=== PATIENT | female | born 1960 | race Caucasian/White ===

== ENCOUNTER 2019-05-17 14:42 | Emergency (ER) | payer OTHER ==
[~2019-05-17] VITALS: Ht 152.4 cm; Wt 72.6 kg
[2019-05-17] MEDS ORDERED: OMEPRAZOLE20 M2 PO (15:12)
[2019-05-17 15:27] LABS: URINE BLOOD 3+ (Negative); URINE CLARITY SL CLOUDY; URINE COLOR RED; URINE GLUCOSE-RANDOM NEGATIVE (Negative); URINE KETONES TRACE (Negative); URINE NITRITE-REFLEX NEGATIVE (Negative); URINE PROTEIN 2+ (Negative); URINE UROBILINOGEN 0.2 E.U./dl (0.2-1.0)
[2019-05-17 15:29] LABS: ICTOTEST (BILI CONFIRMATORY) Negative (Negative); URINE BILIRUBIN 2+ (Negative); URINE LEUKOCYTES-REFLEX 2+ (Negative)
[2019-05-17 15:41] LABS: CASTS None Seen /LPF (None Seen); CRYSTALS None Seen /LPF (None Seen); SQUAMOUS 0-3 Few /LPF (0-3); URINE RBC 3-10 Few /HPF (0-2); URINE WBC-REFLEX 6-15 Few /HPF (0-5)
[2019-05-17] MEDS ORDERED: PHENAZOPYRIDIN200 M2 PO (15:58)
[2019-05-17] MEDS ORDERED: KEFLEX500 M1 PO (15:58)
[2019-05-17] MEDS ORDERED: ZOFRAN ODT4 MG DISSOLVE (15:58)
[2019-05-17 16:11] VITALS: BP 140/78
== END 2019-05-17 16:12 | disposition home or self-care (01) ==
LOC: M.ERS 14:42
PROVIDERS: Emergency Medicine Emergency Medical Services
DX: N39.0 Urinary tract infection, site not specified (principal); G43.909 Migraine, unspecified, not intractable, without status migrainosus; K21.9 Gastro-esophageal reflux disease without esophagitis; Z90.49 Acquired absence of other specified parts of digestive tract